=== PATIENT | female | born 1940 | race Caucasian/White ===

== ENCOUNTER 2017-07-27 08:09 | Outpatient (CLI) | payer MEDICARE ==
--- NOTE | 2017-07-27 11:28 | RAD ---
BARIUM SWALLOW ESOPHOGRAM: History: Dysphagia. History of Truong Fundoplication. Comparison: None. Exposure: 2 minutes. 56.06 mGy*cm^2. FINDINGS: Single front office specialist radiograph shows normal a normal cardiac silhouette. The lungs and pleural spaces are cl ear. Lungs are hyperinflated. Bilateral apical pleural thickening. No pneumothorax or osseous abnorma lity. The cervical and thoracic esophagus is of normal caliber. No mucosal abnormality. Small hiatal hernia is identified. No significant reflux during intermittent fluoroscopy. Patient was administered a 13 mm barium tablet which passed without difficulty. IMPRESSION: 1. Small hiatal hernia. 2. No significant delay in passage of the 13 mm tablet. POS: [facility]
== END 2017-07-27 08:10 | disposition home or self-care (01) ==
LOC: RAD 08:09
PROVIDERS: ATTEND Internal Medicine
DX: R13.10 Dysphagia, unspecified (principal); K44.9 Diaphragmatic hernia without obstruction or gangrene; Z98.890 Other specified postprocedural states
CPT/HCPCS: 74220

== ENCOUNTER → 2017-09-15 | Day surgery (SDC) | payer MEDICARE | LOC: ENDO/OP 07:24 | PROVIDERS: ATTEND Surgery | DX: R13.10 Dysphagia, unspecified (principal); Z79.899 Other long term (current) drug therapy | CPT/HCPCS: 91010 ==